=== PATIENT | male | born 1970 | race Caucasian/White ===

== ENCOUNTER 2023-05-01 11:15 | Day surgery (SDC) | payer OTHER ==
[2023-04-28 15:20] LABS: BILIRUBIN,URINE NEGATIVE (Neg); CLARITY,URINE CLEAR (Clear); COLOR,URINE YELLOW (Yellow); GLUCOSE, URINE NEGATIVE (Neg); KETONES,URINE NEGATIVE (Neg); LEUKOCYTE ESTERASE ,URINE NEGATIVE (Neg); NITRITES, URINE NEGATIVE (Neg); OCCULT BLOOD,URINE NEGATIVE (Neg); PROTEIN,URINE NEGATIVE (Neg); UROBILINOGEN,URINE 0.2 E.U/dL (0.2-1.0)
[2023-04-28 15:22] LABS: BASOPHILS % (AUTO) 0.4 % (0-1); EOSINOPHILS # (AUTO) 0.2 X10'3 (0-0.9); EOSINOPHILS % (AUTO) 1.8 % (0-6); LYMPHOCYTES # (AUTO) 1.9 X10'3 (1.1-4.8); LYMPHOCYTES % (AUTO) 19.6 % (21-51); MEAN CORPUSCULAR HEMOGLOBIN 30.1 PG (27.0-31.0); MEAN CORPUSCULAR HGB CONC 33.8 g/dL (33.0-36.5); MEAN CORPUSCULAR VOLUME 89.3 FL (78-98); MEAN PLATELET VOLUME 9.8 FL (7.4-10.4); MONOCYTES # (AUTO) 0.7 X10'3 (0-0.9); MONOCYTES % (AUTO) 6.9 % (2-12); NEUTROPHILS % (AUTO) 71.3 % (42-75); PRE OP HEMATOCRIT 44.8 % (42.0-52.0); PRE OP HEMOGLOBIN 15.1 g/dL (14.0-17.9); PRE OP PLATELET COUNT 194 X10'3 (140-440); PRE OP WHITE BLOOD COUNT 9.8 10'3 (4.8-10.8); RED BLOOD COUNT 5.01 X10'6 (4.70-6.10); RED CELL DISTRIBUTION WIDTH 14.5 % (11.5-14.5)
[2023-04-28 15:24] LABS: UA COLLECTION TYPE CLN CATCH MIDSTREAM
[2023-04-28 15:36] LABS: ALBUMIN 3.8 G/DL (3.4-5.0); ALKALINE PHOSPHATASE 71 IU/L (46-116); BLOOD UREA NITROGEN 9 MG/DL (7-18); BUN/CREATININE RATIO 8.7 (10.0-20.0); CALCIUM 9.1 MG/DL (8.5-10.1); CHLORIDE 104 MMOL/L (99-107); CREATININE 1.04 MG/DL (0.60-1.10); PRE OP ALT 33 U/L (30-65); PRE OP ANION GAP 4 (8-16); PRE OP AST 24 U/L (10-37); PRE OP BILIRUB, TOTAL 0.4 MG/DL (0.0-1.0); PRE OP GLUCOSE 108 MG/DL (70-104); PRE OP POTASSIUM 3.5 MMOL/L (3.4-5.1); PRE OP SODIUM 137 MMOL/L (135-145); TOTAL CARBON DIOXIDE 29.4 MMOL/L (24-32); TOTAL PROTEIN 7.5 G/DL (6.4-8.2); eGFR 74 ML/MIN
[~2023-05-01] VITALS: Ht 193 cm; Wt 141.3 kg
[2023-05-01] VITALS (15 sets, daily range): BP systolic 109–159; BP diastolic 66–96; PULSE 84–102; RESP 11–17; TEMP 97.9; O2SAT 93–98
[~2023-05-01 11:15] MED LIST: NO HOME MEDS; ceFAZolin inj. 3,000 MG in normal saline 100ml IV soln 100 ML IV ONE; famotidine 20mg tablet PO ONE; ringers solution, lacted 1,000 ML IV SCH
[2023-05-01] MEDS ORDERED: BUPIVAcaine 2.5mg/ml inj 50ml vial (contains preservative) ONE ×2 (11:43→11:44)
[2023-05-01] MEDS ORDERED: LIDOcaine 1% 30ml preserv. free vial ONE (11:43)
[2023-05-01] MEDS ORDERED: BUPIVACAINE liposomal/PF 13.3 MG/ML vial IM ONE ×4 (11:45→14:29)
[2023-05-01] MEDS ORDERED: glycopyrrolate 0.2mg/ml inj ONE (11:47)
[2023-05-01] MEDS ORDERED: rocuronium 10mg/ml inj IV ONE ×2 (11:47→12:21)
[2023-05-01] MEDS ORDERED: sevoflurane 250ml liquid IH ONE (11:47)
[2023-05-01] MEDS ORDERED: midazolam 1 mg/ML 2ml injection ONE (11:54)
[2023-05-01] MEDS ORDERED: fentaNYL /PF 50mcg/ml 5ml ampule ONE (11:54)
[2023-05-01] MEDS ORDERED: 0.9 % SODIUM CHLORIDE 10 ML VIAL ONE (12:21)
[2023-05-01] MEDS ORDERED: propofol inj 20 ML IV ONE ×2 (12:21)
[2023-05-01] MEDS ORDERED: LIDOcaine 2% (20mg/ml) 5ml vial ONE (12:21)
[2023-05-01] MEDS ORDERED: ePHEDrine 50MG/ML INJ. ONE (12:22)
[2023-05-01] MEDS ORDERED: BUPIVAcaine/PF 2.5mg/ml (0.25%) 10ml vial ONE (12:22)
[2023-05-01] MEDS ORDERED: dexamethasone sod phosphate 4mg/ml inj. ONE (12:22)
[2023-05-01] MEDS ORDERED: ondansetron/PF 4mg/2ml inj ONE (12:22)
[2023-05-01] MEDS ORDERED: LIDOcaine 1% 30ml preserv. free vial IJ ONE (12:25)
[2023-05-01] MEDS ORDERED: BUPIVAcaine/PF 2.5 mg/ml (0.25%) 30ml vial IJ ONE (12:25)
[2023-05-01] MEDS ORDERED: morphine 10mg/ml inj. ONE (14:37)
[2023-05-01] MEDS ORDERED: ketorolac trometh. 30mg/ml inj. ONE (14:37)
[2023-05-01] MEDS ORDERED: neostigmine methylsulfate 1 MG/ML 10ml vial ONE (14:39)
--- NOTE | 2023-05-01 14:49 | NUR ---
Received from OR via [facility] , accompanied by Anesthesiologist DR CASTAÑEDA and report given by Anesthesiologist. PATIENT UNCONSCIOUS WITH ORAL AIRWAY IN PLACE, O2 8L VIA MASK, V/S WNL, SCD ON , PIV 20G RUE, DERMABONDED LAPS SITES CLOSED CDI TO ABDOMEN. F/C DRAINING CLEAR YELLOW URINE. Addendum: 05/01/23 at 1512 by Billie Christina RN Amended: Links added. Addendum: 05/01/23 at 1517 by Billie Christina RN 1449 PT Received from OR via [facility] , accompanied by Anesthesiologist DR CASTAÑEDA and report given by Anesthesiologist. PATIENT UNCONSCIOUS WITH ORAL AIRWAY IN PLACE. 8L O2 VIA MASK, V/S WNL, SCD ON , PIV 20G R HAND, DERMABONDED LAPS SITES, ABD BINDER CDI TO ABDOMEN. WILL CONTINUE TO MONITOR
[2023-05-01] MEDS ORDERED: oxyCODONE/APAP 5-325mg tablet PO PRN (14:55)
--- NOTE | 2023-05-01 15:20 | NUR ---
PT WAKING UP, ORAL AIRWAY REMOVED. PT TOLERATED WELL. 8L O2 VIA MASK STILL IN PLACE. VSS. NO C/O PAIN. WILL CONTINUE TO MONITOR Addendum: 05/01/23 at 1527 by Billie Christina RN Amended: Links added.
[2023-05-01] MEDS ORDERED: hydrALAZINE 20mg/ml inj. IV PRN (15:25)
[2023-05-01] MEDS ORDERED: labetalol 20mg/4ml (5mg/ml) syringe IV PRN (15:25)
[2023-05-01] MEDS ORDERED: morphine 2 MG/ML inj. syringe IV PRN (15:25)
[2023-05-01] MEDS ORDERED: ringers solution, lacted 1,000 ML IV SCH (15:25)
[2023-05-01] MEDS ORDERED: meperidine/PF 25mg/ml syringe IV PRN ×3 (15:25)
[2023-05-01] MEDS ORDERED: morphine 4 MG/ML inj SYRINge IV PRN (15:25)
[2023-05-01] MEDS ORDERED: proCHLORperazine 10 MG/2 ml inj IV PRN (15:25)
[2023-05-01] MEDS ORDERED: ondansetron/PF 4mg/2ml inj IV PRN (15:25)
[2023-05-01] MEDS ORDERED: acetaminophen 1,000mg/100ml IV 100 ML IV ONE (15:25)
--- NOTE | 2023-05-01 16:49 | NUR ---
ALL DISCHARGE CRITERIA HAS BEEN MET. VSS, PAIN AT A TOLERABLE LEVEL, ABLE TO SAFELY AMBULATE AND TRANSFER SELF. IV TAKEN OUT WITHOUT ANY COMPLICATIONS. ALL DISCHARGE INSTRUCTIONS COVERED WITH PATIENT AND ALL QUESTIONS ANSWERED. PATIENT TAKEN OUT VIA WHEELCHAIR WITH ALL BELONGINGS TO PERSONAL VEHICLE WHERE FRIEND THO DROVE PATIENT HOME. Addendum: 05/01/23 at 1653 by Billie Christina RN Amended: Links added.
== END 2023-05-01 16:49 | disposition home or self-care (01) ==
LOC: PRE-OP 11:15
PROVIDERS: ATTEND Surgery
DX: K43.6 Other and unspecified ventral hernia with obstruction, without gangrene (principal); K42.0 Umbilical hernia with obstruction, without gangrene; E66.9 Obesity, unspecified; Z68.35 Body mass index [BMI] 35.0-35.9, adult; Z79.899 Other long term (current) drug therapy; Z87.442 Personal history of urinary calculi; Z72.89 Other problems related to lifestyle; Z87.891 Personal history of nicotine dependence; Z98.890 Other specified postprocedural states; Z82.49 Family history of ischemic heart disease and other diseases of the circulatory system; Z83.3 Family history of diabetes mellitus
CPT/HCPCS: 36415; 49596; 64488; 80053; 81003; 82948; 85025; 93005; C1781; C9290; J0131; J0690; J1100; J1885; J2250; J2274; J2405; J2704; J2710; J3010; J3490; J7030; J7120; Z7506; Z7508; Z7512; A4215; A4618